=== PATIENT | female | born 1975 | race Hispanic/Latino ===

== ENCOUNTER → 2017-08-10 | Outpatient (REF) | payer BC ==
[2017-08-10 14:43] LABS: REASON FOR REVIEW COMPREHENSIVE REVIEW
[2017-08-10 14:57] LABS: PERCENT SATURATION 42.1 % (13.2-45.0)
== END ==
LOC: M LAB REF 14:02
PROVIDERS: ATTEND Internal Medicine
DX: D72.819 Decreased white blood cell count, unspecified (principal); D50.9 Iron deficiency anemia, unspecified

== ENCOUNTER → 2018-03-18 | Outpatient (REF) | payer BC ==
[2018-03-18 19:00] LABS: FERRITIN 22 NG/ML (8-252); IRON (FE) 66 UG/DL (50-170); PERCENT SATURATION 20.2 % (13.2-45.0); TOTAL IRON BINDING CAPACITY 327 UG/DL (250-450)
== END ==
LOC: M LAB REF 17:55
DX: D50.9 Iron deficiency anemia, unspecified (principal)
CPT/HCPCS: 83550

== ENCOUNTER 2018-09-01 13:59 | Emergency (ER) | payer OTHER, BC | END 2018-09-01 16:25 | disposition home or self-care (01) | LOC: M ED 13:59 | DX: S89.92XA Unspecified injury of left lower leg, initial encounter (principal); M79.662 Pain in left lower leg; W11.XXXA Fall on and from ladder, initial encounter; Y92.099 Unspecified place in other non-institutional residence as the place of occurrence of the external cause; Y93.89 Activity, other specified; Y99.9 Unspecified external cause status; Z88.5 Allergy status to narcotic agent | CPT/HCPCS: 73564 ==

== ENCOUNTER → 2018-12-02 | Outpatient (REF) | payer OTHER, BC ==
[~2018-12-02] MED LIST: MOBI4TAB PO
== END ==
LOC: M LAB REF 16:26
PROVIDERS: ATTEND Internal Medicine
DX: R19.7 Diarrhea, unspecified (principal)